=== PATIENT | female | born 1985 | race Native Hawaiian/Other Pacific Islander ===

== ENCOUNTER 2020-03-30 09:47 | Outpatient (CLI) | payer OTHER ==
[2020-03-30 10:20] LABS: PLATELET COUNT 330 K/uL (152-353)
[2020-03-30 10:45] LABS: POTASSIUM 3.8 mmol/L (3.6-5.2)
== END 2020-03-30 19:16 | disposition home or self-care (01) ==
LOC: RAD 09:47
PROVIDERS: Internal Medicine
DX: U07.1 COVID-19 (principal); M79.10 Myalgia, unspecified site; R06.02 Shortness of breath
CPT/HCPCS: 36415; 80053; 82550; 83880; 84443; 85027; 85379; 85651; 86769

== ENCOUNTER 2020-05-02 09:05 | Outpatient (CLI) | payer OTHER | END 2020-05-02 19:17 | disposition home or self-care (01) | LOC: RAD 09:05 | DX: M25.562 Pain in left knee (principal); M79.89 Other specified soft tissue disorders ==

== ENCOUNTER 2020-10-07 09:00 | Outpatient (CLI) | payer OTHER | END 2020-10-07 19:17 | disposition home or self-care (01) | LOC: US 09:00 | PROVIDERS: ATTEND Internal Medicine | DX: R74.8 Abnormal levels of other serum enzymes (principal) ==

== ENCOUNTER 2020-11-09 08:08 | Outpatient (CLI) | payer OTHER | END 2020-11-09 19:19 | disposition home or self-care (01) | LOC: NM 08:08 | PROVIDERS: ATTEND Internal Medicine | DX: K80.20 Calculus of gallbladder without cholecystitis without obstruction (principal) | CPT/HCPCS: A9537 ==

== ENCOUNTER 2020-11-12 12:40 | Emergency (ER) | payer OTHER ==
[~2020-11-12] VITALS: Ht 160 cm; Wt 97.1 kg
[2020-11-12 13:31] LABS: PLATELET COUNT 262 K/uL (152-353)
[2020-11-12 13:43] LABS: POTASSIUM 4.6 mmol/L (3.6-5.2)
[2020-11-12 14:31] VITALS: BP 123/80; TEMP 98.5
== END 2020-11-12 14:30 | disposition home or self-care (01) ==
LOC: ED 12:40
PROVIDERS: Family Medicine
DX: K81.9 Cholecystitis, unspecified (principal); K82.8 Other specified diseases of gallbladder
CPT/HCPCS: 80053; 85027; 99283